=== PATIENT | female | born 1950 | race Caucasian/White ===

== ENCOUNTER → 2021-01-30 | Outpatient (CLI) | payer OTHER ==
[~2021-01-30] MED LIST: CRESTOR10 MG PO; DILTIAZEM 12HR60 MG PO; ELIQUIS5 MG PO; FLOMAX0.4 MG PO; NEURONTIN 300300 MG PO; NORCO 10-325 T1 EACH PO; PRAVACHOL80 MG PO; PRINIVIL10 MG PO; PROTONIX 40 MG40 M1 PO; TOPROL XL100 MG PO; XANAX0.5 MG PO; ZANTAC300 MG PO
== END ==
LOC: HEART CORB 10:27
DX: R07.9 Chest pain, unspecified (principal)
CPT/HCPCS: 78452; A9502; J2785